=== PATIENT | female | born 1980 | race Caucasian/White ===

== ENCOUNTER 2016-12-26 12:23 | Emergency (ER) | payer OTHER ==
[~2016-12-26] VITALS: Ht 154.9 cm; Wt 75.3 kg
[2016-12-26 12:44] VITALS: BP 120/82
== END 2016-12-26 15:00 | disposition home or self-care (01) ==
LOC: ED 12:23
DX: R11.10 Vomiting, unspecified (principal); R19.7 Diarrhea, unspecified; R09.89 Other specified symptoms and signs involving the circulatory and respiratory systems; R06.7 Sneezing; R09.81 Nasal congestion; G43.909 Migraine, unspecified, not intractable, without status migrainosus

== ENCOUNTER 2017-03-25 20:52 | Emergency (ER) | payer OTHER ==
[2017-03-25 22:06] LABS: BASOPHIL % 0.5 % (0-2)
[2017-03-25 22:15] LABS: PLATELET COUNT 404 x10^3mcL (130-400); RED CELL DISTRIBUTION WIDTH 15.7 % (11.5-14.5)
[2017-03-25 22:17] LABS: CALCIUM 8.7 mg/dL (8.5-10.1); CARBON DIOXIDE 26.4 mmol/L (21-32); CHLORIDE SERUM 106 mmol/L (98-107); CREATININE SERUM 0.9 mg/dL (0.6-1.0); GFR1 > 60 mL/min; GLUCOSE SERUM 122 mg/dL (74-106); SODIUM SERUM 141 mmol/L (136-145)
[2017-03-25 22:21] LABS: ALBUMIN 3.7 g/dL (3.4-5.0); ALKALINE PHOSPHATASE 145 U/L (46-116); ALT/SGPT 39 U/L (14-59); AMYLASE 51 U/L (25-115); AST/SGOT 19 U/L (15-37); BILIRUBIN TOTAL 0.2 mg/dL (0.20-1.00); LIPASE 214 IU/L (73-393); TOTAL PROTEIN, SERUM 7.7 g/dL (6.4-8.2)
[2017-03-25 23:17] VITALS: BP 111/76
[2017-03-25 23:30] LABS: UA SPECIFIC GRAVITY <=1.005 (1.005-1.035); microscopic required? YES; urine erythrocyte 1+ (NEGATIVE)
== END 2017-03-26 00:19 | disposition home or self-care (01) ==
LOC: ED 20:52
PROVIDERS: Emergency Medicine
DX: N39.0 Urinary tract infection, site not specified (principal)
CPT/HCPCS: 36415

== ENCOUNTER 2017-12-22 10:31 | Emergency (ER) | payer OTHER ==
[~2017-12-22] VITALS: Ht 154.9 cm; Wt 75.8 kg
[2017-12-22 12:47] VITALS: BP 128/82
[2017-12-22 13:06] LABS: UA SPECIFIC GRAVITY 1.025 (1.005-1.035); microscopic required? YES; urine erythrocyte 1+ (NEGATIVE)
== END 2017-12-22 12:47 | disposition home or self-care (01) ==
LOC: ED 10:31
PROVIDERS: Emergency Medicine
DX: N39.0 Urinary tract infection, site not specified (principal); Z88.5 Allergy status to narcotic agent
CPT/HCPCS: J1885

== ENCOUNTER 2019-10-15 13:15 | Emergency (ER) | payer OTHER ==
[~2019-10-15] VITALS: Ht 154.9 cm; Wt 73.9 kg
[2019-10-15 13:17] VITALS: Ht 154.9 cm; Wt 73.9 kg
[2019-10-15 14:21] LABS: BASOPHIL % 0.4 % (0-2)
[2019-10-15 14:28] LABS: PLATELET COUNT 483 x10^3mcL (130-400); RED CELL DISTRIBUTION WIDTH 17.5 % (11.5-14.5)
[2019-10-15 16:17] LABS: CALCIUM 8.7 mg/dL (8.5-10.1); CHLORIDE SERUM 101 mmol/L (98-107); CREATININE SERUM 0.7 mg/dL (0.6-1.0); GFR1 > 60 mL/min; GLUCOSE SERUM 96 mg/dL (74-106); POTASSIUM SERUM 3.6 mmol/L (3.5-5.1); SODIUM SERUM 135 mmol/L (136-145)
[2019-10-15 16:23] LABS: ALBUMIN 3.9 g/dL (3.4-5.0); ALKALINE PHOSPHATASE 131 U/L (46-116); ALT/SGPT 27 U/L (14-59); AST/SGOT 13 U/L (15-37); BILIRUBIN TOTAL 0.3 mg/dL (0.20-1.00); LIPASE 131 IU/L (73-393)
[2019-10-15 16:24] LABS: TOTAL PROTEIN, SERUM 8.5 g/dL (6.4-8.2)
[2019-10-15] MEDS ORDERED: TOPAMAX100 MG PO (22:42)
[2019-10-15 23:20] VITALS: BP 122/82
== END 2019-10-15 23:20 | disposition home or self-care (01) ==
LOC: ED 13:15
PROVIDERS: Specialist
DX: R10.84 Generalized abdominal pain (principal); R19.7 Diarrhea, unspecified; G43.909 Migraine, unspecified, not intractable, without status migrainosus; D21.9 Benign neoplasm of connective and other soft tissue, unspecified; Z88.5 Allergy status to narcotic agent
CPT/HCPCS: J1885; J2405; J3010; J7030; Q0162; Q9967